=== PATIENT | female | born 1990 | race Asian ===

== ENCOUNTER 2021-03-25 03:55 | Emergency (ER) | payer BC, SELFPAY ==
--- NOTE | ~2021-03-25 | XR_ITS ---
XR elbow LT min 3V 03/25/2021 04:24 INDICATION: Left elbow pain PROCEDURE: 4 views left elbow COMPARISON: No prior studies for comparison. FINDINGS: Fracture, dislocation or subluxation is not identified. The soft tissues appear within norm al limits. No foreign bodies are identified. IMPRESSION: 1: NO ACUTE BONE OR JOINT ABNORMALITY IDENTIFIED. Reviewed, dictated and finalized at location A.
[2021-03-25 05:34] VITALS: BP 101/60; PULSE 68; RESP 17; TEMP 37.2; O2SAT 100
[2021-03-25 06:31] VITALS: BP 103/63; PULSE 74; RESP 15; O2SAT 100
--- NOTE | 2021-03-25 07:36 | ED.UPPEXIN ---
HPI - Extremity Injury (Upper) General Chief Complaint: Extremity Injury, Upper Stated Complaint: sore on left elbow Time Seen by Provider: 03/25/21 07:06 Source: patient and RN notes reviewed Mode of arrival: ambulatory Limitations: no limitations History of Present Illness HPI narrative: This is a 31 year old female who presents for evaluation of left elbow pain. Patient states she ran [place] [employer] on Tuesday which is an obstacle course that you get dirty. She scratched her left elbow during this event. She noticed last night she had pain to her left elbow and swelling. She denies nausea, vomiting, fever or chills. Related Data Home Medications Medication Instructions Recorded Confirmed cetirizine [Zyrtec] 10 mg PO DAILY 03/25/21 Allergies Allergy/AdvReac Type Severity Reaction Status Date / Time No Known Allergies Allergy Verified 03/25/21 05:41 Review of Systems Review of Systems: All systems reviewed & are unremarkable except as noted in HPI and below PMFSH Past Medical History Medical History (Updated 03/25/21 @ 07:41 by Estela Boyer MD) Patient denies medical problems Social History Social History Smoking status: Never smoker Second hand tobacco smoke exposure: No Alcohol intake: current Gender identity (if verbalized by the patient): Female Exam Const: General: no acute distress and alert Orientation/consciousness: patient oriented x3 Eyes: EOM: EOMs intact bilaterally Resp: Effort & Inspection: normal respiratory effort Skin: Other: see MSK Neuro: General: patient oriented x3 and moves all extremities Extrem: Other: left elbow with superficial single linear scratch with scab with mild swelling and erythema to bursa, no drainage. FROM Psych: Mental Status: mental status grossly normal Affect: normal affect Course Reevaluation(s) Reevaluation #1: I Discussed with patient that she will be treated for bursitis. Date: 03/25/21 Time: 07:39 Vital Signs Vital signs: Vital Signs Temperature 98.9 F 03/25/21 05:34 Pulse Rate 68 03/25/21 05:34 Respiratory Rate 17 03/25/21 05:34 Blood Pressure 101/60 03/25/21 05:34 Pulse Oximetry 100 03/25/21 05:34 Temperature 98.9 F 03/25/21 05:34 Pulse Rate 74 03/25/21 06:31 Respiratory Rate 15 03/25/21 06:31 Blood Pressure 103/63 03/25/21 06:31 Pulse Oximetry 100 03/25/21 06:31 MDM - Extremity Injury (Upper) Lab Data Labs: UCG Bedside Result Negative Reference Range: Negative Imaging Data Radiologist's impression: ITS Impressions Elbow X-Ray 03/25/21 07:30 IMPRESSION: 1: NO ACUTE BONE OR JOINT ABNORMALITY IDENTIFIED. Discharge Plan Discharge Clinical Impression: Bursitis of left elbow Qualifiers: Elbow bursitis location: olecranon bursitis Qualified Code(s): M70.22 - Olecranon bursitis, left elbow Patient Disposition: Home, Self-Care Condition: Stable Instructions: Antibiotic Form, Elbow Bursitis (ED) Additional Instructions: Today you were found to have bursitis. Take antibiotics as prescribed. Apply warm compress to elbow 2 times a day . Prescriptions: New cephalexin 500 mg capsule 500 mg PO Q6H 10 Days Qty: 40 RF: 0 doxycycline monohydrate 100 mg capsule 100 mg PO BID Qty: 20 RF: 0 No Action Zyrtec 10 mg Capsule 10 mg PO DAILY RF: 0 Follow-up/Referrals: Ayaan Chand MD [Physician] - PHYSICIAN,HEALTHCARE RISK CONTROL CONSULTANT [Primary Care Provider] - Partha Johansen MD [Physician] -
== END 2021-03-25 08:00 | disposition home or self-care (01) ==
PROVIDERS: Emergency Provider General Practice
DX: M70.22 Olecranon bursitis, left elbow (principal)
CPT/HCPCS: 73080; 81025; 99283